=== PATIENT | male | born 1965 | race African-American/Black ===

== ENCOUNTER 2018-12-20 14:03 | Inpatient (IN) | payer OTHER ==
[2018-12-20 15:08] VITALS: BMI 24.9
--- NOTE | 2018-12-20 15:46 | HP ---
CIWA Score Nausea/Vomitin Muscle Tremors: 2 Anxiety: 2 Agitation: 2 Paroxysmal Sweats: 1-Minimal Palms Moist Orientation: 0-Oriented Tacttile Disturbances: 1-Very Mild Itch/Numbness Auditory Disturbances: 1-Very Mild Visual Disturbances: 0-None Headache: 2-Mild CIWA-Ar Total Score: 13 - Admission Criteria OASAS Guidelines: Admission for Medically Managed Detox: Requires at least one of the followin. CIWA greater than 12 2. Seizures within the past 24 hours 3. Delirium tremens within the past 24 hours 4. Hallucinations within the past 24 hours 5. Acute intervention needed for co occurring medical disorder 6. Acute intervention needed for co occurring psychiatric disorder 7. Severe withdrawal that cannot be handled at a lower level of care (continued vomiting, continued diarrhea, abnormal vital signs) requiring intravenous medication and/or fluids 8. Admission ROS [facility] - HPI Chief Complaint: i need help to stop drinking alcohol,cocaine,heroin dependence on subxone 8 mgs/ 2mgs sl bid, last medicated suboxone at 8am this morning multiple admissions in detox last treatment in [place] 07/23 completed keep relapsing nicotine dependence 1/2 requested nicotine gum weight loss longest sobriety 4 years plan for relocation after detox ptsd,bipolar disorder non compliance also has htn on med Allergies/Adverse Reactions: Allergies Allergy/AdvReac Type Severity Reaction Status Date / Time No Known Allergies Allergy Verified 12/20/18 16:34 History of Present Illness: this 53 years old male with alcohol,cocaine dependence,heroin abused,also on suboxone 8 mgs/2 mgs sl bid seeking detox as mentioned in chief complaint Exam Limitations: No Limitations - Ebola screening Have you traveled outside of the country in the last 21 days: No Have you had contact with anyone from an Ebola affected area: No Do you have a fever: No - Review of Systems Constitutional: Chills, Loss of Appetite, Malaise, Night Sweats, Changes in sleep, Weakness, Weight Stable, Unintentional Wgt. Loss, Unexplained wgt Loss EENT: reports: Tearing, Nose Congestion Respiratory: reports: No Symptoms reported GI: reports: Diarrhea, Nausea, Poor Appetite : reports: No Symptoms Reported Musculoskeletal: reports: Back Pain, Joint Pain, Muscle Pain Integumentary: reports: Dryness Endocrine: reports: No Symptoms Reported Hematology: reports: No Symptoms Reported Psychiatric: reports: No Sypmtoms Reported, Judgement Intact, Mood/Affect Appropiate, Orientated x3, other (bipolar,ptsd) Other Systems: Reviewed and Negative Patient History - Patient Medical History Hx Anemia: No Hx Asthma: No Hx Chronic Obstructive Pulmonary Disease (COPD): No Hx Cancer: No Hx Cardiac Disorders: No Hx Congestive Heart Failure: No Hx Hypertension: Yes (on med) Hx Hypercholesterolemia: No Hx Pacemaker: No HX Cerebrovascular Accident: No Hx Seizures: No Hx Dementia: No Hx Diabetes: No Hx Gastrointestinal Disorders: No Hx Liver Disease: No Hx Genitourinary Disorders: No Hx Sexually Transmitted Disorders: No Hx Renal Disease (ESRD): No Hx Thyroid Disease: No Hx Human Immunodeficiency Virus (HIV): No (last 07/23 negative) Hx Hepatitis C: No Hx Depression: Yes Hx Suicide Attempt: No Hx Bipolar Disorder: Yes Hx Schizophrenia: No Other Medical History: no suicidal,no homicidal - Patient Surgical History Past Surgical History: No - PPD History Previous Implant?: Yes Documented Results: Positive w/o proof Implanted On Prior [facility] Admission?: No PPD to be Administered?: No - Smoking Cessation Smoking history: Current every day smoker Have you smoked in the past 12 months: Yes Aproximately how many cigarettes per day: 10 Cigars Per Day: 0 Hx Chewing Tobacco Use: No Initiated information on smoking cessation: Yes 'Breaking Loose' booklet given: 12/20/18 - Substance & Tx. History Hx Alcohol Use: Yes Hx Substance Use: Yes Substance Use Type: Alcohol, Cocaine Hx Substance Use Treatment: Yes ([place] 07/23 completed) - Substances abused Alcohol Substance route: Oral Frequency: Daily Amount used: vodka 1.5 pint, beer 6pk 16oz, Age of first use: 14 Date of last use: 12/19/18 Cocaine Substance route: Inhalation Frequency: Daily Amount used: $50.00 Age of first use: 17 Date of last use: 12/19/18 Heroin Substance route: Inhalation Frequency: Daily Amount used: 7 bags Age of first use: 20 Date of last use: 12/19/18 Family Disease History - Family Disease History Family Disease History: [place]: Father (prostate,) Admission Physical Exam [facility] - Vital Signs Vital Signs: Vital Signs - 24 hr 12/20/18 14:39 Temperature 98.5 F Pulse Rate 66 Respiratory 20 Rate Blood Pressure 121/76 - Physical General Appearance: Yes: Moderate Distress, Tremorous, Irritable, Sweating, Anxious HEENTM: Yes: Normal ENT Inspection, NAVYA, Pharynx Normal Respiratory: Yes: Within Normal Limits, Lungs Clear, Normal Breath Sounds Neck: Yes: Within Normal Limits, Supple, Trachea in good position Breast: Yes: Within Normal Limits Cardiology: Yes: Within Normal Limits, Regular Rhythm, Regular Rate, S1, S2 Abdominal: Yes: Within Normal Limits, Normal Bowel Sounds, Non Tender, Flat, Soft Genitourinary: Yes: Within Normal Limits Back: Yes: Muscle Spasm Musculoskeletal: Yes: full range of Motion, Back pain, Muscle Pain Extremities: Yes: Tremors Neurological: Yes: logistics technician II-XII NML intact, Fully Oriented, Alert, Motor Strength 5/5 Integumentary: Yes: Dry Lymphatic: Yes: Within Normal Limits - Diagnostic (1) Alcohol dependence with uncomplicated withdrawal Current Visit: Yes Status: Acute (2) Cocaine dependence Current Visit: Yes Status: Acute (3) Heroin abuse Current Visit: Yes Status: Acute (4) Encounter for monitoring Suboxone maintenance therapy Current Visit: Yes Status: Acute (5) Weight loss Current Visit: Yes Status: Acute (6) Dehydration Current Visit: Yes Status: Acute (7) Bipolar disorder Current Visit: Yes Status: Acute (8) Depression Current Visit: Yes Status: Acute (9) Positive PPD, treated Current Visit: Yes Status: Acute Cleared for Admission S - Detox or Rehab [facility] Level of Care: Medically Managed Detox Regimen/Protocol: Valium Inpatient Rehab Admission - Rehab Decision to Admit Inpatient rehab admission?: No
[2018-12-20] MEDS ORDERED: IBUPROFEN 400 MG TABLET (FP) PO PRN (16:06)
[2018-12-20] MEDS ORDERED: METHOCARBAMOL 500 MG TABLET PO PRN (16:06)
[2018-12-20] MEDS ORDERED: MENTHOL/PHENOL 1 EACH UD MM PRN (16:06)
[2018-12-20] MEDS ORDERED: hydrOXYzine PAMOATE 25 MG CAPSULE (FP) PO PRN (16:06)
[2018-12-20] MEDS ORDERED: MAG HYDROX/AL HYDROX/SIMETH 30 ML UNIT-DOSE CUP PO PRN (16:06)
[2018-12-20] MEDS ORDERED: BISMUTH SUBSALICYLATE 524 MG/30 ML UD PO PRN (16:06)
[2018-12-20] MEDS ORDERED: MAGNESIUM CITRATE 300 ML BOTTLE PO PRN (16:06)
[2018-12-20] MEDS ORDERED: ACETAMINOPHEN 325 MG TABLET (FP) PO PRN ×2 (16:06)
[2018-12-20] MEDS ORDERED: MELATONIN 5 MG TABLETS PO PRN (16:06)
[2018-12-20] MEDS ORDERED: NICOTINE POLACRILEX 2 MG GUM BUC PRN (16:06)
[2018-12-20] MEDS ORDERED: MAGNESIUM HYDROX 2400MG/30ML ORAL SUSPENSION 30 ML CUP PO PRN (16:06)
[2018-12-20] MEDS: AMOXICILLIN 500 MG CAPSULE (FP) PO SCH ×2 (19:07→23:21)
[2018-12-20] MEDS: diazePAM 5 MG TABLET PO PRN (19:09)
[2018-12-20] MEDS ORDERED: THIAMINE HCL 100 MG TABLET (FP) PO SCH (22:00)
[2018-12-20] MEDS: diazePAM 5 MG TABLET PO SCH (23:21)
[2018-12-20] MEDS: BUPRENORPHINE/NALOXONE 8 MG/2 MG FILM PACKET SL SCH (23:22)
[2018-12-21 01:23] LABS: PH,URINE 6.5 (5.0-8.0); URINE APPEARANCE Clear; URINE BILIRUBIN Negative (NEGATIVE); URINE COLOR Yellow; URINE GLUCOSE (UA) Negative (NEGATIVE); URINE KETONE Negative (NEGATIVE); URINE LEUK ESTERASE Negative (NEGATIVE); URINE NITRITE Negative (NEGATIVE); URINE PROTEIN Negative (NEGATIVE); URINE UROBILINOGEN 0.2 mg/dL (0.2-1.0)
[2018-12-21] MEDS: AMOXICILLIN 500 MG CAPSULE (FP) PO SCH ×2 (05:21→11:05)
[2018-12-21] MEDS: diazePAM 5 MG TABLET PO SCH (05:21)
[2018-12-21] MEDS: BUPRENORPHINE/NALOXONE 8 MG/2 MG FILM PACKET SL SCH (07:07)
[2018-12-21] MEDS ORDERED: AMLODIPINE BESYLATE PO SCH (10:00)
[2018-12-21] MEDS ORDERED: BENAZEPRIL PO SCH (10:00)
[2018-12-21] MEDS ORDERED: amLODIPine BESYLATE 10 MG TABLET (FP) PO SCH (10:00)
[2018-12-21] MEDS ORDERED: PRENATAL VITAMINS W/ FOLIC ACID TABLET (FP) PO SCH (10:00)
[2018-12-21] MEDS ORDERED: LISINOPRIL 20 MG TABLET (FP) PO SCH (10:00)
[2018-12-21] MEDS: diazePAM 5 MG TABLET PO PRN (10:22)
[2018-12-21 10:48] VITALS: BP 119/77; PULSE 54; TEMP 96.8
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
[2018-12-21 10:58] LABS: ALBUMIN 2.8 g/dl (3.4-5.0); ALK PHOS 77 U/L (45-117); ANION GAP 2 MMOL/L (8-16); BILIRUBIN,TOTAL 0.2 mg/dL (0.2-1); BLOOD UREA NITROGEN 16 mg/dL (7-18); CALCIUM 8.6 mg/dL (8.5-10.1); CHLORIDE 105 mmol/L (98-107); CO2 33 mmol/L (21-32); GLUCOSE,RANDOM 104 mg/dL (74-106); SGOT/AST 12 U/L (15-37); SGPT/ALT 14 U/L (13-61); SODIUM 139 mmol/L (136-145); TOT PROT 6.3 g/dl (6.4-8.2)
[2018-12-21 11:02] LABS: HEMATOCRIT 36.4 % (35.4-49); HEMOGLOBIN 12.1 GM/dL (11.7-16.9); MCH 27.8 pg (25.7-33.7); MCHC 33.2 g/dl (32.0-35.9); MEAN CELL VOLUME 83.6 fl (80-96); MEAN PLT VOLUME 9.7 fl (7.5-11.1); PLATELET COUNT 203 K/MM3 (134-434); RBC 4.35 M/mm3 (4.00-5.60); RDW 13.7 % (11.9-15.9); WHITE BLOOD COUNT 4.8 K/mm3 (4.0-10.0)
--- NOTE | 2018-12-21 11:12 | DS ---
[facility] Detox Discharge Summary Admission Date: 12/20/18 - History Present History: Alcohol Dependence, Cocaine Dependence - Physical Exam Results Vital Signs: Vital Signs Temperature 96.8 F L 12/21/18 10:48 Pulse Rate 54 L 12/21/18 10:48 Respiratory Rate 18 12/21/18 10:48 Blood Pressure 119/77 12/21/18 10:48 O2 Sat by Pulse Oximetry (%) - Treatment Hospital Course: Discharged Condition Good - Medication Discharge Medications: Ambulatory Orders Amlodipine Besylate/Benazepril 10 - 20 mg PO DAILY 12/20/18 Amoxicillin - [Amoxicillin 875mg Tablet -] 875 mg PO BID 12/20/18 Buprenorphine HCl/Naloxone HCl [Buprenorp-Nalox 8-2 mg Sl Film] 1 each SL BID Gabapentin [Neurontin] 100 mg PO BID 12/20/18 - AMA Did Patient Leave Against Medical Advice: No (Administrative/Involuntary discharge)
[2018-12-22] MEDS ORDERED: diazePAM 5 MG TABLET PO SCH (10:00)
[2018-12-23] MEDS ORDERED: diazePAM 5 MG TABLET PO SCH (06:00)
== END 2018-12-21 11:05 | disposition home or self-care (01) | DRG 897 ==
LOC: YASAS 14:03 → Y6N 16:47
PROVIDERS: ADMIT Surgery; ATTEND Surgery
PROC: HZ2ZZZZ Detoxification Services for Substance Abuse Treatment (ICD-10-PCS; principal; 2018-12-20)
DX: F10.230 Alcohol dependence with withdrawal, uncomplicated (principal); F11.20 Opioid dependence, uncomplicated; F14.20 Cocaine dependence, uncomplicated; F17.210 Nicotine dependence, cigarettes, uncomplicated; F91.8 Other conduct disorders; F31.9 Bipolar disorder, unspecified; R63.4 Abnormal weight loss; E86.0 Dehydration; R76.11 Nonspecific reaction to tuberculin skin test without active tuberculosis
CPT/HCPCS: 36415; 80053; 81003; 85027; 86593